=== PATIENT | female | born 1965 ===

== ENCOUNTER 2018-05-18 03:14 | Emergency (ER) | payer MEDICAID ==
[2018-05-18 03:15] VITALS: BMI 38.2
[2018-05-18 03:29] VITALS: TEMP 98.1
--- NOTE | 2018-05-18 03:32 | ED PDOC ---
Arrival/HPI - General Historian: Patient - History of Present Illness Time/Duration: 1-3 hours Symptom Onset: Sudden Symptom Course: Unchanged Quality: Aching - General Chief Complaint: Headache Time Seen by Provider: 05/18/18 03:16 - History of Present Illness Narrative History of Present Illness (Text): 05/18/18 03:32 Patient is a 53 yo F with PMH of migraines, HTN, HLD, arthritis, CVA presents to ED due to headache/facial pain. Patient states that initially for the past few days she had left sided headache, but was awoken tonight with severe left jaw pain with radiation to right side. Patient states that her symptoms are similar to when she had a stroke in the past. Patient denies any weakness in her extremities, numbness, or notice any facial droop. Patients states that the back of her neck is tight and tender. Patient denies LOC, syncope, light or auditory sensitivity, CP, SOB, n/v/d, abdominal pain, fever, chills, or dizziness. PMD: Dr. Rivas ([facility]) Past Medical History - Provider Review Nursing Documentation Reviewed: Yes - Past History Past History: No Previous - Infectious Disease Hx of Infectious Diseases: None - Tetanus Immunization Tetanus Immunization: Unknown - Cardiac Other/Comment: High Cholesterol - Pulmonary Hx Asthma: Yes - Neurological Hx Migraine: Yes Hx Transient Ischemic Attacks (TIA): Yes Other/Comment: weak hand grasps both hands - Musculoskeletal/Rheumatological Hx Arthritis: Yes - Gastrointestinal Hx Gastroesophageal Reflux: Yes Other/Comment: gastritis - Psychiatric Hx Psychophysiologic Disorder: No Hx Anxiety: No Hx Bipolar Disorder: No Hx Depression: No Hx Emotional Abuse: No Hx Hallucinations: No Hx Panic Disorder: No Hx Post Traumatic Stress Disorder: No Hx Psychosis: No Hx Physical Abuse: No Hx Schizophrenia: No Hx Sexual Abuse: No Hx Substance Use: No - Past Surgical History Past Surgical History: No Previous - Surgical History Hx Section: Yes (x3) - Anesthesia Hx Anesthesia: Yes Hx Anesthesia Reactions: No Hx Malignant Hyperthermia: No - Suicidal Assessment Feels Threatened In Home Enviroment: No Family/Social History - Physician Review Nursing Documentation Reviewed: Yes Family/Social History: No Known Family HX Smoking Status: Never Smoked Hx Alcohol Use: No Hx Substance Use: No Hx Substance Use Treatment: No Allergies/Home Meds Allergies/Adverse Reactions: Allergies No Known Allergies Allergy (Verified 05/18/18 03:29) Home Medications: Home Meds Medication Instructions Recorded Confirmed Acetaminophen/Butalbital/Caf 1 tab PO TID PRN 05/18/18 05/18/18 [Fioricet] Amitriptyline HCl 50 mg PO HS 05/18/18 05/18/18 Aspirin [Adult Low Dose Aspirin EC] 81 mg PO DAILY 05/18/18 05/18/18 Cyclobenzaprine [Flexeril] 10 mg PO HS 05/18/18 05/18/18 Pantoprazole Sodium [Protonix] 40 mg PO DAILY 05/18/18 05/18/18 Rosuvastatin Calcium [Crestor] 10 mg PO HS 05/18/18 05/18/18 Review of Systems - Physician Review All systems were reviewed & negative as marked: Yes (12 point ROS reviewed and is negative other than what is stated in HPI.) Physical Exam Vital Signs Reviewed: Yes Temperature: Afebrile Blood Pressure: Normal Pulse: Regular Respiratory Rate: Normal Appearance: Positive for: Non-Toxic Pain Distress: Mild Mental Status: Positive for: Alert and Oriented X 3 - Systems Exam Head: Present: Atraumatic, Normocephalic Pupils: Present: PERRL Extroacular Muscles: Present: EOMI Conjunctiva: Present: Normal Mouth: Present: Moist Mucous Membranes Neck: Present: Normal Range of Motion Respiratory/Chest: Present: Clear to Auscultation, Good Air Exchange. No: Respiratory Distress, Accessory Muscle Use Cardiovascular: Present: Regular Rate and Rhythm, Normal S1, S2. No: Murmurs Abdomen: No: Tenderness, Distention, Peritoneal Signs Upper Extremity: Present: Normal Inspection. No: Cyanosis, Edema Lower Extremity: Present: Normal Inspection. No: Edema Neurological: Present: GCS=15, CN II-XII Intact, Speech Normal, Other (No facial droop noted, No focal deficits noted, strength in UE and LE equal bilaterally, negative rhomberg, good nose to finger test) Skin: Present: Warm, Dry, Normal Color. No: Rashes Psychiatric: Present: Alert, Oriented x 3, Normal Insight, Normal Concentration Vital Signs Temp Pulse Resp BP Pulse Ox 05/18/18 05:25 70 18 105/63 100 05/18/18 05:15 70 18 105/63 100 05/18/18 03:25 98.1 F 74 17 120/81 99 Medical Decision Making ED Course and Treatment: 05/18/18 03:45 53 yo F presents with left sided facial pain. Plan: - CT head - Fiorocet - Reassess and disposition 05/18/18 05:12 CT Head without Contrast IMPRESSION: Normal head/brain CT. Discussed results with patient. Patient will be discharged. Patient advised to follow up with PMD. 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 Pt, whose past medical history includes migraines, hypertension, hyperlipidemia, and CVA, presented for headache and left-sided facial pain. Aware and agree with HPI, clinical findings , plan, and management. Plan: -- CT Head -- Reassess and disposition (Zelalem Rosales) - RAD Interpretation Radiology Orders: 05/18/18 03:30 HEAD W/O CONTRAST [CT] Stat - Medication Orders Current Medication Orders: Discontinued Medications Acetaminophen/Butalbital/Caffeine (Fioricet) 1 tab PO STAT STA Stop: 05/18/18 04:15 Last Admin: 05/18/18 05:10 Dose: 1 tab MAR Pain Assessment Document 05/18/18 05:10 JOL (Rec: 05/18/18 05:14 [id number] [id number]) Pain Reassessment Is this a pain reassessment? No Sleep Is patient sleeping during reassessment? 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 Ulcer: No History Surgical Site Infection Following: None - Disposition Have Diagnosis and Disposition been Completed?: Yes Disposition Time: 05:14 Patient Plan: Discharge - Disposition Diagnosis: Headache Disposition: HOME/ ROUTINE Condition: STABLE Discharge Instructions (ExitCare): Headache, Adult (DC) Additional Instructions: Follow up with PMD Resume home medications KATH BARRAZA, thank you for letting us take care of you today. Your provider was Zelalem Rosales MD and you were treated for HEADACHE/ JAW NUMBNESS. The emergency medical care you received today was directed at your acute symptoms. If you were prescribed any medication, please fill it and take as directed. It may take several days for your symptoms to resolve. Return to the Emergency Department if your symptoms worsen, do not improve, or if you have any other problems. Please contact your doctor or call one of the physicians/clinics you have been referred to that are listed on the Patient Visit Information form that is included in your discharge packet. Bring any paperwork you were given at discharge with you along with any medications you are taking to your follow up visit. Our treatment cannot replace ongoing medical care by a primary care provider outside of the emergency department. Thank you for allowing the [facility] team to be part of your care today. Forms: [employer] (Japanese)
[2018-05-18] MEDS ORDERED: Apap-Butalbital-Caffeine 325-50-40mg Tab PO STA (04:14)
[2018-05-18 05:27] VITALS: BP 105/63; PULSE 70; RESP 18; O2SAT 100
--- NOTE | 2018-05-18 08:49 | CT ---
PROCEDURE: CT HEAD WITHOUT CONTRAST. HISTORY: headache COMPARISON: None available. TECHNIQUE: Axial computed tomography images were obtained through the head/brain without intravenous contrast. Radiation dose: Total exam DLP = 924 mGy-cm. This CT exam was performed using one or more of the following dose reduction techniques: Automated exposure control, adjustment of the mA and/or kV according to patient size, and/or use of iterative reconstruction technique. FINDINGS: HEMORRHAGE: No intracranial hemorrhage. BRAIN: No mass effect or edema. No atrophy or chronic microvascular ischemic changes. VENTRICLES: Unremarkable. No hydrocephalus. CALVARIUM: Unremarkable. PARANASAL SINUSES: Unremarkable as visualized. No significant inflammatory changes. MASTOID AIR CELLS: Unremarkable as visualized. No inflammatory changes. OTHER FINDINGS: None. IMPRESSION: Normal CT of the Head.
== END 2018-05-18 05:25 | disposition home or self-care (01) ==
LOC: ED 03:14
DX: R51 Headache (principal); I10 Essential (primary) hypertension

== ENCOUNTER 2018-09-02 17:01 | Emergency (ER) | payer SELFPAY ==
[2018-09-02 17:01] VITALS: BMI 38.2
[2018-09-02] MEDS ORDERED: Sodium Chloride 0.9% 500 ML IV STA (19:27)
--- NOTE | 2018-09-02 19:42 | ED PDOC ---
Arrival/HPI - General Chief Complaint: Female Genitourinary Time Seen by Provider: 09/02/18 19:10 Historian: Patient - History of Present Illness Narrative History of Present Illness (Text): 09/02/18 19:38 53 yo F complains of lower abdominal pain with nausea, dysuria, hematuria, urinary frequency and feeling feverish today. Otherwise: (-) vomiting, (-) diarrhea, (-) back pain, (-) melena, (-) hematochezia. Has history of prior abdominal surgery - 3 c-sections. Past Medical History - Past History Past History: No Previous - Infectious Disease Hx of Infectious Diseases: None - Tetanus Immunization Tetanus Immunization: Unknown - Reproductive Menopause: Yes - Cardiac Hx Cardiac Disorders: Yes Other/Comment: High Cholesterol - Pulmonary Hx Respiratory Disorders: Yes Hx Asthma: Yes - Neurological Hx Neurological Disorder: Yes HX Cerebrovascular Accident: Yes Hx Migraine: Yes Hx Transient Ischemic Attacks (TIA): Yes - HEENT Hx HEENT Disorder: No - Renal Hx Renal Disorder: No - Endocrine/Metabolic Hx Endocrine Disorders: Yes Other/Comment: PRE DIABETIC - Hematological/Oncological Hx Blood Disorders: No - Integumentary Hx Dermatological Disorder: No - Musculoskeletal/Rheumatological Hx Musculoskeletal Disorders: Yes Hx Arthritis: Yes - Gastrointestinal Hx Gastrointestinal Disorders: Yes Hx Gastroesophageal Reflux: Yes Other/Comment: gastritis - Genitourinary/Gynecological Hx Genitourinary Disorders: Yes - Psychiatric Hx Psychophysiologic Disorder: Yes Hx Anxiety: Yes Hx Depression: Yes Hx Substance Use: No - Past Surgical History Past Surgical History: No Previous - Surgical History Hx Section: Yes (x3) - Anesthesia Hx Anesthesia: Yes Hx Anesthesia Reactions: No Hx Malignant Hyperthermia: No - Suicidal Assessment Feels Threatened In Home Enviroment: No Family/Social History Family/Social History: No Known Family HX Smoking Status: Never Smoked Hx Alcohol Use: No Hx Substance Use: No Hx Substance Use Treatment: No Allergies/Home Meds Allergies/Adverse Reactions: Allergies No Known Allergies Allergy (Verified 09/02/18 18:33) Home Medications: Home Meds Medication Instructions Recorded Confirmed Aspirin [Adult Low Dose Aspirin EC] 81 mg PO DAILY 05/18/18 09/02/18 Pantoprazole Sodium [Protonix] 40 mg PO DAILY 05/18/18 09/02/18 DULoxetine [Cymbalta] 30 mg PO DAILY 09/02/18 09/02/18 Meclizine [Antivert] 12.5 mg PO BID 09/02/18 09/02/18 Sertraline [Zoloft] 50 mg PO DAILY 09/02/18 09/02/18 Review of Systems - Review of Systems Constitutional: Fevers. absent: Fatigue Respiratory: absent: SOB, Cough Cardiovascular: absent: Chest Pain, Palpitations Gastrointestinal: Abdominal Pain, Nausea. absent: Diarrhea, Vomiting Genitourinary Female: Dysuria, Frequency, Hematuria Musculoskeletal: absent: Arthralgias, Back Pain, Neck Pain Skin: absent: Rash, Pruritis, Skin Lesions Neurological: absent: Headache, Dizziness Physical Exam Vital Signs Temp Pulse Resp BP Pulse Ox 09/02/18 18:36 99.3 F 84 16 116/81 99 Temperature: Afebrile Blood Pressure: Normal Pulse: Regular Respiratory Rate: Normal Appearance: Positive for: Well-Appearing, Non-Toxic, Comfortable Pain Distress: None Mental Status: Positive for: Alert and Oriented X 3 - Systems Exam Head: Present: Atraumatic, Normocephalic Pupils: Present: PERRL Extroacular Muscles: Present: EOMI Conjunctiva: Present: Normal Mouth: Present: Moist Mucous Membranes Neck: Present: Normal Range of Motion Respiratory/Chest: Present: Clear to Auscultation, Good Air Exchange. No: Respiratory Distress, Accessory Muscle Use Cardiovascular: Present: Regular Rate and Rhythm, Normal S1, S2. No: Murmurs Abdomen: Present: Tenderness (+mild lower abdominal tenderness). No: Distention, Peritoneal Signs, Rebound, Guarding Back: Present: Normal Inspection. No: CVA Tenderness, Midline Tenderness Upper Extremity: Present: Normal Inspection. No: Cyanosis, Edema Lower Extremity: Present: Normal Inspection. No: Edema Neurological: Present: GCS=15, CN II-XII Intact, Speech Normal, Motor Func Grossly Intact, Normal Sensory Function Skin: Present: Warm, Dry, Normal Color. No: Rashes Psychiatric: Present: Alert, Oriented x 3, Normal Insight, Normal Concentration Medical Decision Making ED Course and Treatment: 09/02/18 19:42 Plan: -- Labs -- IV fluids -- Urinalysis -- Urine cx -- Zofran / Toradol -- Reassess and disposition 09/02/18 23:09 Labs reviewed : WBC 14.9, UA +nitrates/blood/large leuks. Rocephin 1 g IV ordered. Results d/w the patient. Dx of UTI d/w the patient. On reevaluation, patient reports improvement of symptoms, denies any nausea, abdominal pain or back pain. On exam, patient remains awake alert and oriented 3 in no acute distress. Neck is supple, abdomen soft and nontender, no CVA tenderness, repeat neuro exam shows no focal findings. Advised to follow up with the clinic in 1-2 days without fail. Advised to take medication as prescribed. Return to the emergency room at any time for any new or worsening symptoms. Patient states she fully agrees with and understands discharge instructions. States that she agrees with the plan and disposition. Verbalized and repeated discharge instructions and plan. I have given the patient opportunity to ask any additional questions. - Medication Orders Current Medication Orders: Sodium Chloride (Sodium Chloride 0.9%) 500 mls @ 500 mls/hr IV .Q1H STA Stop: 09/02/18 20:26 Discontinued Medications Ketorolac Tromethamine (Toradol) 30 mg IVP STAT STA Stop: 09/02/18 19:27 Ondansetron HCl (Zofran Inj) 4 mg IVP STAT STA Stop: 09/02/18 19:27 Phenazopyridine HCl (Pyridium) 200 mg PO ONCE ONE Stop: 09/02/18 19:27 - PA / [employer] / Resident Statement / has reviewed & agrees with the documentation as recorded. Disposition/Present on Arrival - Present on Arrival Any Indicators Present on Arrival: No History of DVT/PE: No History of Uncontrolled Diabetes: No Urinary Catheter: No History of Decub. Ulcer: No History Surgical Site Infection Following: None - Disposition Have Diagnosis and Disposition been Completed?: Yes Diagnosis: UTI (urinary tract infection), Abdominal pain Disposition: HOME/ ROUTINE Disposition Time: 23:00 Patient Plan: Discharge Condition: STABLE Discharge Instructions (ExitCare): Urinary Tract Infections in Adults, Acute Abdomen (Belly Pain) Additional Instructions: Thank you for letting us take care of you today. You were treated for abdominal pain, UTI. The emergency medical care you received today was directed at your acute symptoms. If you were prescribed any medication, please fill it and take as directed. It may take several days for your symptoms to resolve. Return to the Emergency Department if your symptoms worsen, do not improve, or if you have any other problems. Please contact your doctor in 2 days for re-evaluation and follow up / or call one of the physicians/clinics you have been referred to that are listed on the Patient Visit Information form that is included in your discharge packet. Bring any paperwork you were given at discharge with you along with any medications you are taking to your follow up visit. Our treatment cannot replace ongoing medical care by a primary care provider (PCP) outside of the emergency department. Thank you for allowing the [facility] team to be part of your care today. If you had a urine culture: It will take several days for the results, if any change in treatment is needed we will contact you. Prescriptions: Nitrofurantoin Macrocrystals [Macrobid] 100 mg PO BID #20 cap Ref[place]: [facility] [place] [facility] [place] - Follow up with primary Forms: [employer] (Albanian), WORK NOTE
[2018-09-02 21:53] LABS: BASO # 0.01 K/mm3 (0.0-2.0); BASO % 0.1 % (0.0-3.0); EOS # 0.1 (0.0-0.7); EOS % 0.6 % (1.5-5.0); GRAN # 10.82 (1.4-6.5); GRAN % 72.6 % (50.0-68.0); LYMPH # 3.1 (1.2-3.4); LYMPH % 20.9 % (22.0-35.0); MEAN CELL VOLUME 89.1 fl (80.0-105.0); MEAN CORPUSCULAR HEMOGLOBIN 29.5 pg (25.0-35.0); MEAN CORPUSCULAR HGB CONC 33.2 g/dl (31.0-37.0); MEAN PLATELET VOLUME 10.5 fl (7.0-11.0); MONO # 0.9 (0.1-0.6); MONO % 5.8 % (1.0-6.0); RBC 4.4 10^6/uL (3.5-6.1); RED CELL DISTRIBUTION WIDTH 13.7 % (11.5-14.5); WHITE BLOOD COUNT 14.9 10^3/ul (4.5-11.0)
[2018-09-02 22:01] LABS: ALBUMIN 4.2 g/dL (3.0-4.8); ALT/SGPT 29 U/L (7-56); AST/SGOT 35 U/L (14-36); BLOOD UREA NITROGEN 11 mg/dL (7-21); CALCIUM 9.1 mg/dL (8.4-10.5); GFR NON-AFRICAN AMERICAN > 60; LIPASE 61 U/L (23-300)
[2018-09-02 22:02] LABS: INR 1.14; PARTIAL THROMBOPLASTIN TIME 30.1 Seconds (25.1-36.5)
[2018-09-02 22:22] LABS: PH,URINE 6.5 (4.7-8.0); URINE BILIRUBIN NEGATIVE (NEGATIVE); URINE BLOOD LARGE (NEGATIVE); URINE GLUCOSE (UA) NEGATIVE (NEGATIVE); URINE LEUKOCYTE ESTERASE LARGE Leu/uL (NEGATIVE); URINE PROTEIN 100 mg/dL (<30 mg/dL); URINE UROBILINOGEN 0.2 E.U./dL (<1 E.U./dL)
[2018-09-02 22:24] LABS: URINE APPEARANCE SL CLOUDY (CLEAR); URINE COLOR STRAW (YELLOW)
[2018-09-02] MEDS ORDERED: cefTRIAXone 1 gm 1 GM/100 ML BAG IVPB STA (22:26)
[2018-09-02 22:34] LABS: URINE EPITHELIAL CELLS 0 - 2 /hpf (0-5); URINE RBC TNTC /hpf (0-2); URINE WBC TNTC /hpf (0-6)
[2018-09-02 22:35] LABS: URINE BACTERIA MANY (NEG)
[2018-09-02 23:24] VITALS: BP 120/61; PULSE 74; RESP 17; TEMP 99.2; O2SAT 100
== END 2018-09-02 23:23 | disposition home or self-care (01) ==
LOC: ED 17:01
DX: N39.0 Urinary tract infection, site not specified (principal); R10.30 Lower abdominal pain, unspecified; E78.00 Pure hypercholesterolemia, unspecified; R73.03 Prediabetes; Z86.73 Personal history of transient ischemic attack (TIA), and cerebral infarction without residual deficits
CPT/HCPCS: 80053; 81001; 83690; 83735; 85025; 85610; 85730; 87086; 96374; 96375; 99283; J0696; J1885; J2405; J7030